=== PATIENT | female | born 1990 | race African-American/Black ===

== ENCOUNTER 2016-09-25 04:15 | Emergency (ER) | payer MEDICAID ==
[~2016-09-25] VITALS: Ht 167.6 cm; Wt 61.0 kg
[2016-09-25 04:30] VITALS: BP 104/55
== END 2016-09-25 05:35 | disposition left against medical advice (07) ==
LOC: ER 04:43
DX: R05 Cough (principal); M79.1 Myalgia; R07.0 Pain in throat; J45.909 Unspecified asthma, uncomplicated; Z98.890 Other specified postprocedural states